=== PATIENT | male | born 1980 | race Caucasian/White ===

== ENCOUNTER 2021-08-25 14:54 | Emergency (ER) | payer SELFPAY ==
[~2021-08-25] VITALS: Ht 175.3 cm; Wt 90.0 kg
[2021-08-25 15:01] VITALS: BP 158/89
[2021-08-25] MEDS ORDERED: HALOPERIDOL LACTATE 5MG/ML VIAL IM STA (15:15)
[2021-08-25] MEDS ORDERED: LORAZEPAM 2MG/ML CPJ IV STA (15:15)
[2021-08-25] MEDS ORDERED: SODIUM CHLORIDE 0.9% 1,000 ML IV ONE (15:15)
== END 2021-08-25 15:22 | disposition left against medical advice (07) ==
LOC: ER 14:54
DX: F15.10 Other stimulant abuse, uncomplicated (principal); R00.0 Tachycardia, unspecified; R45.851 Suicidal ideations; R44.0 Auditory hallucinations; I10 Essential (primary) hypertension
CPT/HCPCS: 93005; 99283; J7030